=== PATIENT | female | born 1965 | race Caucasian/White ===

== ENCOUNTER 2016-10-31 20:21 | Emergency (ER) | payer MEDICAID ==
--- NOTE | 2016-10-31 20:24 | ED Physician Chart ---
Chief Complaint/HPI - Patient Information Date Seen:: 10/31/16 Time Seen:: 20:24 Chief Complaint:: shortness of breath History of Present Illness:: 51-year-old female complains of acute, constant, severe, worsening, shortness of breath 4 hours. Has associated increased anxiety. As that she was recently diagnosed with interstitial lung disease and is taking some type of an inhaled bronchodilator with inhaled steroid but symptoms have persisted and become worse. Denies numbness, tingling, lightheadedness, acute vision changes , syncope, chest pain, palpitations, nausea, vomiting, abdominal pain, dysuria, gross hematuria, gross blood in stool. Allergies:: Allergies Allergy/AdvReac Type Severity Reaction Status Date / Time Penicillins Allergy Verified 10/10/16 21:05 Historian:: Patient Review:: Nurse's Note Reviewed Review of Systems - Review of Systems Other: Complete system review otherwise unremarkable except as noted in history of present illness. Past Medical History - Past Medical History Past Medical History: Other (interstitial lung disease, hypothyroidism, Sjogren' s, endometriosis) Family History: None Social History: Non Smoker, No Alcohol, No Drug Use, Surgical History: Hysterectomy Psychiatricy History: None Medication: Reviewed Family Medical History - Family Member Mother History Unknown: Yes Physical Exam - Physical Examination Other:: INITIAL VITAL SIGNS: Reviewed by me GENERAL: Alert and interactive. No acute distress HEAD: Head is normocephalic and atraumatic EYES: EOMI. PERRL. No scleral icterus. No conjunctival injection ENT: Moist mucous membranes. NECK: Supple. No masses. Full range of motion RESPIRATORY: No tachypnea. Prolonged respiratory phase bilaterally with shallow breaths otherwise, clear breath sounds bilaterally. No wheezing, rales, or rhonchi CV: Regular rate and rhythm. No murmurs, rubs, or gallops ABDOMEN: Soft, non-distended, non-tender. No guarding. No rebound. No masses. EXTREMITIES: No deformity. No cyanosis. No edema. SKIN: Warm and dry. No obvious rashes. NEUROLOGIC: Alert and oriented. Face is symmetric. Speech is normal. Moves all extremities equally. Motor and sensory distally intact. Labs/Radiology/EKG Results - Radiology Results Results: CT chest Tiny nodular tree and blood opacities at the lung bases. Cannot rule out infectious process. May need follow-up. No effusion. Small hiatal hernia. - EKG Interpretations Comments:: 12-lead EKG Interpretation by David Solis MD: Normal Sinus Rhythm with ventricular rate of 82 beats per minute Normal axis Normal intervals No acute ST or T wave changes. No obvious STEMI ED Septic Shock - . Is Septic Shock (SBP<90, OR Lactate>4 mmol\L) present?: No Reassessment (Disposition) - Reassessment Reassessment:: Blood pressure was noted to be elevated over 120/80. There were no signs of hypertension. Discussed the findings with the patient and recommended that the patient follow up with the primary care physician regarding the elevated blood pressure. Labs unremarkable Patient has some tree and the pattern in the lung bases. For now we will cover with azithromycin antibiotic prescription. She does have an appointment with a supervisor [facility] [employer] [facility] at [facility]. She will see a supervisor [employer] next week. Provided a copy of the CD of the CT high definition lung imaging. Patient feels much improved. Probably has some acute bronchitis as well. Unknown etiology. Reassessment Condition:: Improved - Diagnosis Diagnosis:: Acute shortness of breath due to acute bronchitis, unspecified etiology Elevated blood pressure without a diagnosis of hypertension - Aftercare/Follow up Instructions Aftercare/Follow-Up Instructions:: Counseled pt regarding lab results/diagnosis & need follow up, Refer to Discharge Instructions Medication Prescribed:: Azithromycin - Patient Disposition Discharge/Transfer:: Home Time:: 22:25 Condition at Disposition:: Improved ED Discharge Plan - Patient Disposition Admit/Discharge/Transfer: PT DISCHARGED HOME Condition at Disposition: Improved Instructions: Bronchitis, [id number], Acute Bronchitis
[2016-10-31] MEDS ORDERED: Albuterol/Ipratropium Neb 3 ML AERS HHN ONE ×2 (20:30→20:38)
[2016-10-31 20:51] LABS: % BASOPHILS 0.5 % (0.0-2.0); % EOSINOPHILS 2.6 % (0.0-5.0); % LYMPHOCYTES 37.3 % (20.0-50.0); % MONOCYTES 7.3 % (2.0-10.0); % NEUTROPHILS 52.3 % (40.0-80.0); HEMATOCRIT 40.5 % (35.0-45.0); HEMOGLOBIN 13.6 gm/dL (11.7-15.5); MEAN CELL VOLUME 85.4 fl (81-100); MEAN CORPUSCULAR HEMOGLOBIN 28.8 pg (27.0-31.0); MEAN CORPUSCULAR HGB CONC 33.7 pg (28.0-36.0); MEAN PLATELET VOLUME 8.4 fl; NEUTROPHILE ABSOLUTE 5.1 Th/cmm (1.8-8.0); PLATELET COUNT 235 Th/cmm (150-400); RED BLOOD COUNT 4.74 Mil/cmm (3.80-5.10); WHITE BLOOD COUNT 9.8 Th/cmm (4.8-10.8)
[2016-10-31 21:08] LABS: ALB/GLOB RATIO 1.6 (1.0-1.8); ALKALINE PHOSPHATASE 61 U/L (34-104); ANION GAP 12.2 (7.0-16.0); BILIRUBIN,TOTAL 0.3 mg/dL (0.3-1.0); BUN - UREA NITROGEN 21 mg/dL (7-25); BUN/CREATININE RATIO 23.3; CALCIUM SERUM 10.2 mg/dL (8.6-10.3); CARBON DIOXIDE 21.7 mEq/L (21.0-31.0); CHLORIDE 106 mEq/L (98-107); CREATININE - SERUM 0.9 mg/dL (0.6-1.2); GLUCOSE 93 mg/dL (70-105); POTASSIUM SERUM 3.9 mEq/L (3.5-5.1); SGOT 12 U/L (13-39); SGPT/ALT 13 U/L (7-52); SODIUM SERUM 136 mEq/L (136-145)
--- NOTE | 2016-11-01 11:04 | Diagnostic Imaging Report ---
CT Chest without IV contrast HISTORY: Interstitial lung disease COMPARISON: Chest x-ray 10/10/2016 Technique: Axial images were obtained from the base of the neck to the upper abdomen without IV contrast. Reconstructions were made. Total DLP 859, CTD I 25 Findings: Assessment of the mediastinum is limited due to lack of IV contrast. No evidence of mediastinal lymphadenopathy. Heart size is at the upper limits of normal. No evidence of a pericardial effusion. No evidence of any aortic aneurysm. Small hiatal hernia is noted. The lung farah demonstrated hypoventilatory and atelectatic changes with mild groundglass opacities and tiny nodular opacities of the lung bases. No focal consolidation or effusions. The upper abdomen demonstrates no acute abnormalities. Mild degenerative changes of the spine are noted. IMPRESSION: Mild hypoventilatory and atelectatic changes of the lungs with mild groundglass opacities which may be due to hypoventilatory changes. No focal consolidation identified. Tiny nodular 1 to 2 mm opacity is of the lung bases are noted which are nonspecific and may be due to infectious or inflammatory process. Small hiatal hernia.
== END 2016-10-31 22:44 | disposition home or self-care (01) ==
LOC: ER 20:21
DX: J20.9 Acute bronchitis, unspecified (principal); R06.02 Shortness of breath; R03.0 Elevated blood-pressure reading, without diagnosis of hypertension; Z88.0 Allergy status to penicillin; Z90.710 Acquired absence of both cervix and uterus
CPT/HCPCS: 99285; 96374; 96375; 94640; 93005; 71250; 83880; 36415; 85025; 80053; 87040 ×2; J1885; J2060; J2930; 81025-TC